=== PATIENT | female | born 1955 | race Caucasian/White ===

== ENCOUNTER → 2020-08-26 11:06 | Outpatient (CLI) | payer BC, SELFPAY ==
[2020-08-26 11:55] VITALS: PULSE 73; PULSE 77
== END ==
PROVIDERS: PCP Internal Medicine Cardiovascular Disease; Visit Provider Nurse Practitioner
DX: J96.91 Respiratory failure, unspecified with hypoxia (principal)
CPT/HCPCS: 94060; 94640

== ENCOUNTER → 2021-05-01 07:03 | Outpatient (CLI) | payer BC, SELFPAY ==
[2021-05-01 07:43] LABS: Adenovirus,PCR Not Detected (NotDetected); Bordetella Pertussis Not Detected (NotDetected); Chlamydophila Pneumoniae, PCR Not Detected (NotDetected); Coronavirus 19, PCR Not Detected (NotDetected); Coronavirus 229E Not Detected (NotDetected); Coronavirus NL63 Not Detected (NotDetected); Coronavirus OC43 Not Detected (NotDetected); Coronovirus HKU1,PCR Not Detected (NotDetected); Human Metapneumovirus Not Detected (NotDetected); Influenza A, PCR Not Detected (NotDetected); Influenza AH1, 2009 Not Detected (NotDetected); Influenza AH1, PCR Not Detected (NotDetected); Influenza AH3,PCR Not Detected (NotDetected); Influenza B, PCR Not Detected (NotDetected); Mycoplasma Pneumoniae, PCR Not Detected (NotDetected); Parainfluenza 1, PCR Not Detected (NotDetected); Parainfluenza 2, PCR Not Detected (NotDetected); Parainfluenza 3, PCR Not Detected (NotDetected); Parainfluenza 4, PCR Not Detected (NotDetected); Respiratory Syncytial Virus Not Detected (NotDetected); Rhinovirus/Enterovirus Not Detected (NotDetected)
[2021-05-01 07:46] LABS: Basophils # 0.1 K/mm3 (0-0.2); Basophils % 1.2 % (0.1-2.0); Eosinophils # 0.3 K/mm3 (0.0-0.4); Eosinophils % 3.9 % (0.1-12.0); Hematocrit 39.8 % (37.0-47.0); Hemoglobin 13.4 g/dL (12.2-16.2); Lymphocytes # 2.3 K/mm3 (0.7-4.5); Lymphocytes % 31.7 % (10-50); Mean Corpuscular HGB Conc 33.7 g/dL (31.8-35.4); Mean Corpuscular Hemoglobin 27.5 pg (27.0-31.2); Mean Corpuscular Volume 81.6 fl (81-99); Monocytes # 0.6 K/mm3 (0.1-1.0); Monocytes % 8.4 % (1.7-9.3); Neutrophils # 3.9 K/mm3 (1.8-7.8); Neutrophils % 54.8 % (37.0-80.0); Platelet Count 236 K/mm3 (142-424); Red Blood Count 4.88 M/mm3 (4.20-5.40); White Blood Count 7.1 K/mm3 (4.8-10.8)
== END ==
PROVIDERS: PCP Family Medicine; Visit Provider Nurse Practitioner
DX: Z11.52 Encounter for screening for COVID-19 (principal); J06.9 Acute upper respiratory infection, unspecified
CPT/HCPCS: 36415; 85025; 87581; 87633; 87798

== ENCOUNTER → 2022-04-21 06:26 | Outpatient (CLI) | payer OTHER, SELFPAY ==
[2022-04-21 18:19] LABS: Adenovirus,PCR Not Detected (NotDetected); Bordetella Pertussis Not Detected (NotDetected); Chlamydophila Pneumoniae, PCR Not Detected (NotDetected); Coronavirus 19, PCR Not Detected (NotDetected); Coronavirus 229E Not Detected (NotDetected); Coronavirus NL63 Not Detected (NotDetected); Coronavirus OC43 Not Detected (NotDetected); Coronovirus HKU1,PCR Not Detected (NotDetected); Human Metapneumovirus Not Detected (NotDetected); Influenza A, PCR Not Detected (NotDetected); Influenza AH1, 2009 Not Detected (NotDetected); Influenza AH1, PCR Not Detected (NotDetected); Influenza AH3,PCR Not Detected (NotDetected); Influenza B, PCR Not Detected (NotDetected); Mycoplasma Pneumoniae, PCR Not Detected (NotDetected); Parainfluenza 1, PCR Not Detected (NotDetected); Parainfluenza 2, PCR Not Detected (NotDetected); Parainfluenza 3, PCR Not Detected (NotDetected); Parainfluenza 4, PCR Not Detected (NotDetected); Respiratory Syncytial Virus Not Detected (NotDetected); Rhinovirus/Enterovirus Not Detected (NotDetected)
== END ==
PROVIDERS: PCP Nurse Practitioner; Visit Provider Nurse Practitioner
DX: Z20.822 Contact with and (suspected) exposure to COVID-19 (principal)
CPT/HCPCS: 87581; 87632; 87798; C9803; U0003; U0005

== ENCOUNTER → 2023-03-06 23:12 | Outpatient (CLI) | payer BC, SELFPAY ==
[2023-03-06 19:47] LABS: Basophils # 0.1 K/mm3 (0-0.2); Basophils % 0.5 % (0.1-2.0); Eosinophils # 0.3 K/mm3 (0.0-0.4); Eosinophils % 3.2 % (0.1-12.0); Hematocrit 44.3 % (37.0-47.0); Lymphocytes # 3.4 K/mm3 (0.7-4.5); Lymphocytes % 35.5 % (10-50); Mean Corpuscular HGB Conc 31.7 g/dL (31.8-35.4); Mean Corpuscular Hemoglobin 27.9 pg (27.0-31.2); Mean Platelet Volume 9.4 fl (7.4-10.4); Monocytes # 0.7 K/mm3 (0.1-1.0); Monocytes % 6.9 % (1.7-9.3); Neutrophils # 5.1 K/mm3 (1.8-7.8); Neutrophils % 53.8 % (37.0-80.0); Platelet Count 335 K/mm3 (142-424); Red Blood Count 5.04 M/mm3 (4.20-5.40); Red Cell Distribution Width 13.8 % (11.5-17.5); White Blood Count 9.5 K/mm3 (4.8-10.8)
== END ==
PROVIDERS: PCP Nurse Practitioner; Visit Provider Nurse Practitioner
DX: J06.9 Acute upper respiratory infection, unspecified (principal)
CPT/HCPCS: 85025; 87635; C9803; U0003; U0005

== ENCOUNTER → 2023-04-06 23:27 | Outpatient (CLI) | payer BC, SELFPAY ==
[2023-04-06 18:44] LABS: Adenovirus,PCR Not Detected (NotDetected); Bordetella Pertussis Not Detected (NotDetected); Chlamydophila Pneumoniae, PCR Not Detected (NotDetected); Coronavirus 19, PCR Not Detected (NotDetected); Coronavirus 229E Not Detected (NotDetected); Coronavirus NL63 Not Detected (NotDetected); Coronavirus OC43 Not Detected (NotDetected); Coronovirus HKU1,PCR Not Detected (NotDetected); Human Metapneumovirus Not Detected (NotDetected); Influenza A, PCR Not Detected (NotDetected); Influenza AH1, 2009 Not Detected (NotDetected); Influenza AH1, PCR Not Detected (NotDetected); Influenza AH3,PCR Not Detected (NotDetected); Influenza B, PCR Not Detected (NotDetected); Mycoplasma Pneumoniae, PCR Not Detected (NotDetected); Parainfluenza 1, PCR Not Detected (NotDetected); Parainfluenza 2, PCR Not Detected (NotDetected); Parainfluenza 3, PCR Not Detected (NotDetected); Parainfluenza 4, PCR Not Detected (NotDetected); Respiratory Syncytial Virus Not Detected (NotDetected)
[2023-04-06 18:52] LABS: Basophils % 0.3 % (0.1-2.0); Eosinophils # 0.3 K/mm3 (0.0-0.4); Eosinophils % 3.6 % (0.1-12.0); Hematocrit 43.2 % (37.0-47.0); Hemoglobin 13.5 g/dL (12.2-16.2); Lymphocytes # 1.7 K/mm3 (0.7-4.5); Mean Corpuscular HGB Conc 31.4 g/dL (31.8-35.4); Mean Corpuscular Hemoglobin 27.6 pg (27.0-31.2); Mean Corpuscular Volume 88.2 fl (81-99); Mean Platelet Volume 8.6 fl (7.4-10.4); Monocytes # 0.6 K/mm3 (0.1-1.0); Monocytes % 6.1 % (1.7-9.3); Neutrophils # 6.7 K/mm3 (1.8-7.8); Platelet Count 303 K/mm3 (142-424); Red Cell Distribution Width 13.8 % (11.5-17.5); White Blood Count 9.3 K/mm3 (4.8-10.8)
[2023-04-06 21:29] LABS: Rhinovirus/Enterovirus Detected (NotDetected)
== END ==
PROVIDERS: PCP Nurse Practitioner; Visit Provider Nurse Practitioner
DX: J06.9 Acute upper respiratory infection, unspecified (principal); B34.1 Enterovirus infection, unspecified
CPT/HCPCS: 85025; 87581; 87632; 87798

== ENCOUNTER → 2023-08-31 09:16 | Outpatient (CLI) | payer BC, SELFPAY ==
[2023-08-31 18:35] LABS: Adenovirus,PCR Not Detected (NotDetected); Coronavirus 19, PCR Not Detected (NotDetected); Coronavirus 229E Not Detected (NotDetected); Coronavirus NL63 Not Detected (NotDetected); Coronavirus OC43 Not Detected (NotDetected); Coronovirus HKU1,PCR Not Detected (NotDetected); Human Metapneumovirus Not Detected (NotDetected); Influenza A, PCR Not Detected (NotDetected); Influenza AH1, 2009 Not Detected (NotDetected); Influenza AH1, PCR Not Detected (NotDetected); Influenza AH3,PCR Not Detected (NotDetected); Influenza B, PCR Not Detected (NotDetected); Parainfluenza 1, PCR Not Detected (NotDetected); Parainfluenza 2, PCR Not Detected (NotDetected); Parainfluenza 3, PCR Not Detected (NotDetected); Parainfluenza 4, PCR Not Detected (NotDetected); Respiratory Syncytial Virus Not Detected (NotDetected); Rhinovirus/Enterovirus Not Detected (NotDetected)
[2023-08-31 18:42] LABS: Basophils % 0.3 % (0.1-2.0); Eosinophils # 0.5 K/mm3 (0.0-0.4); Eosinophils % 4.1 % (0.1-12.0); Hemoglobin 13.3 g/dL (12.2-16.2); Lymphocytes # 2.1 K/mm3 (0.7-4.5); Lymphocytes % 17.1 % (10-50); Mean Corpuscular HGB Conc 32.5 g/dL (31.8-35.4); Mean Corpuscular Hemoglobin 28.6 pg (27.0-31.2); Mean Corpuscular Volume 87.9 fl (81-99); Mean Platelet Volume 9.5 fl (7.4-10.4); Monocytes # 0.7 K/mm3 (0.1-1.0); Neutrophils # 8.6 K/mm3 (1.8-7.8); Neutrophils % 72.4 % (37.0-80.0); Platelet Count 305 K/mm3 (142-424); Red Blood Count 4.67 M/mm3 (4.20-5.40); Red Cell Distribution Width 13.9 % (11.5-17.5); White Blood Count 11.9 K/mm3 (4.8-10.8)
== END ==
PROVIDERS: PCP Nurse Practitioner; Visit Provider Nurse Practitioner
DX: J06.9 Acute upper respiratory infection, unspecified (principal); J02.9 Acute pharyngitis, unspecified; R09.81 Nasal congestion; R51.9 Headache, unspecified
CPT/HCPCS: 85025; 87581; 87632; 87635; 87798

== ENCOUNTER 2023-11-28 21:09 | Outpatient (CLI) | payer BC, SELFPAY ==
[2023-11-28 18:47] LABS: Adenovirus,PCR Not Detected (NotDetected); Coronavirus 19, PCR Not Detected (NotDetected); Coronavirus 229E Not Detected (NotDetected); Coronavirus NL63 Not Detected (NotDetected); Coronavirus OC43 Not Detected (NotDetected); Coronovirus HKU1,PCR Not Detected (NotDetected); Human Metapneumovirus Not Detected (NotDetected); Influenza A, PCR Not Detected (NotDetected); Influenza AH1, 2009 Not Detected (NotDetected); Influenza AH1, PCR Not Detected (NotDetected); Influenza AH3,PCR Not Detected (NotDetected); Influenza B, PCR Not Detected (NotDetected); Parainfluenza 1, PCR Not Detected (NotDetected); Parainfluenza 2, PCR Not Detected (NotDetected); Parainfluenza 3, PCR Not Detected (NotDetected); Parainfluenza 4, PCR Not Detected (NotDetected); Respiratory Syncytial Virus Not Detected (NotDetected); Rhinovirus/Enterovirus Not Detected (NotDetected)
[2023-11-28 19:20] LABS: Basophils # 0.2 K/mm3 (0-0.2); Basophils % 2.7 % (0.1-2.0); Eosinophils # 0.3 K/mm3 (0.0-0.4); Eosinophils % 3.2 % (0.1-12.0); Hemoglobin 15.3 g/dL (12.2-16.2); Lymphocytes # 2.3 K/mm3 (0.7-4.5); Lymphocytes % 28.3 % (10-50); Mean Corpuscular HGB Conc 31.8 g/dL (31.8-35.4); Mean Corpuscular Hemoglobin 29.6 pg (27.0-31.2); Mean Corpuscular Volume 93.2 fl (81-99); Monocytes # 0.4 K/mm3 (0.1-1.0); Monocytes % 5.6 % (1.7-9.3); Neutrophils # 4.8 K/mm3 (1.8-7.8); Neutrophils % 60.2 % (37.0-80.0); Platelet Count 300 K/mm3 (142-424); Red Blood Count 5.15 M/mm3 (4.20-5.40); Red Cell Distribution Width 13.9 % (11.5-17.5)
[2023-11-28 19:35] LABS: Chloride 106 mmol/L (98-107)
[2023-11-28 19:36] LABS: Potassium 4.2 mmoL/L (3.5-5.1); Sodium 138 mmol/L (136-145)
[2023-11-28 19:38] LABS: Alanine Aminotransferase 40 U/L (12-78); Alkaline Phosphatase 133 U/L (38-126); Anion Gap 15.2 mEq/L (5-15); Aspartate Amino Transferase 47 U/L (14-36); Bilirubin,Total 0.7 mg/dl (0.2-1.3); Blood Urea Nitrogen 17 mg/dl (7-17); Carbon Dioxide 21 mmol/L (22.0-30.0); Estimated Glomerular Filt Rate 50 ml/min (>60); GFR (African American) 60 ML/MIN (>60)
[2023-11-28 19:39] LABS: Albumin Level 4.2 g/dl (3.5-5.0); Albumin/Globulin Ratio 1.5 (1.1-1.8); Calcium 10.1 mg/dl (8.4-10.2); Globulin 2.8 g/dL (1.3-3.2); Glucose 128 mg/dl (74-100)
[2023-11-28 20:08] LABS: Thyroid Stimulating Hormone 1.17 uIU/mL (0.465-4.68)
[2023-11-28 21:06] LABS: Creatinine,Urine Random 30 mg/dL (Not Estab.)
== END 2023-11-28 23:59 ==
LOC: LAB.DROPOF 21:09
PROVIDERS: PCP Nurse Practitioner; Visit Provider Nurse Practitioner
DX: R53.83 Other fatigue (principal); J06.9 Acute upper respiratory infection, unspecified; R30.0 Dysuria; R80.9 Proteinuria, unspecified; R11.2 Nausea with vomiting, unspecified; R19.7 Diarrhea, unspecified; Z79.899 Other long term (current) drug therapy
CPT/HCPCS: 80053; 82043; 82570; 84443; 85025; 87086; 87632; 87635

== ENCOUNTER 2023-12-27 18:00 | Outpatient (CLI) | payer BC, SELFPAY ==
[2023-12-27 18:08] LABS: Adenovirus,PCR Not Detected (NotDetected); Coronavirus 19, PCR Not Detected (NotDetected); Coronavirus 229E Not Detected (NotDetected); Coronavirus NL63 Not Detected (NotDetected); Coronavirus OC43 Not Detected (NotDetected); Coronovirus HKU1,PCR Not Detected (NotDetected); Human Metapneumovirus Not Detected (NotDetected); Influenza A, PCR Not Detected (NotDetected); Influenza AH1, 2009 Not Detected (NotDetected); Influenza AH1, PCR Not Detected (NotDetected); Influenza AH3,PCR Not Detected (NotDetected); Influenza B, PCR Not Detected (NotDetected); Parainfluenza 1, PCR Not Detected (NotDetected); Parainfluenza 2, PCR Not Detected (NotDetected); Parainfluenza 3, PCR Not Detected (NotDetected); Parainfluenza 4, PCR Not Detected (NotDetected); Respiratory Syncytial Virus Not Detected (NotDetected); Rhinovirus/Enterovirus Not Detected (NotDetected)
[2023-12-27 18:29] LABS: Basophils # 0.1 K/mm3 (0-0.2); Basophils % 1.5 % (0.1-2.0); Eosinophils # 0.4 K/mm3 (0.0-0.4); Hematocrit 44.8 % (37.0-47.0); Hemoglobin 14.1 g/dL (12.2-16.2); Lymphocytes % 33.9 % (10-50); Mean Corpuscular HGB Conc 31.4 g/dL (31.8-35.4); Mean Corpuscular Hemoglobin 29.4 pg (27.0-31.2); Mean Corpuscular Volume 93.6 fl (81-99); Mean Platelet Volume 8.1 fl (7.4-10.4); Monocytes # 0.6 K/mm3 (0.1-1.0); Monocytes % 7.1 % (1.7-9.3); Neutrophils # 4.7 K/mm3 (1.8-7.8); Neutrophils % 53.5 % (37.0-80.0); Platelet Count 344 K/mm3 (142-424); Red Blood Count 4.78 M/mm3 (4.20-5.40); Red Cell Distribution Width 13.9 % (11.5-17.5); White Blood Count 8.8 K/mm3 (4.8-10.8)
== END 2023-12-27 23:59 | disposition home or self-care (01) ==
LOC: LAB.DROPOF 12-28 10:26
PROVIDERS: PCP Nurse Practitioner; Visit Provider Nurse Practitioner
DX: R07.0 Pain in throat (principal); R09.81 Nasal congestion; R50.9 Fever, unspecified; R53.83 Other fatigue
CPT/HCPCS: 85025; 87632; 87635

== ENCOUNTER 2025-05-15 11:30 | Outpatient (CLI) | payer MEDICARE, SELFPAY ==
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
--- OUTSIDE RECORDS SUMMARY | 2025-04-18 09:00 | XMS_ITS | Encounter Summary ---
Author Organization [place] [address] Care Team Providers Care Iron Installer Name Role Phone Aravind Gomez MD Primary Care Provider [phone] Carie Berry MD Unavailable [phone] Lawrence Bueno Clerical Staff Unavailable [phone] Reason for Visit * Reason Comments Labs Only Encounter Details Date Type Department Care Team (Latest Contact Info) Description 04/18/2025 9:00 AM EDT Clinical Support MARGUERITE [place] [address] [place] [address] Slim Fletcher MA Poorly controlled type 2 diabetes mellitus (HCC); Low vitamin B12 level; Stage 3a chronic kidney disease (HCC); Statin intolerance; Hyperlipidemia associated with type 2 diabetes mellitus (HCC) Social History Tobacco Use Types Packs/Day Years [...] Date Recorded PHQ-2 Total Score 0 06/14/2023 [facility] [place] of Occupat ional Health - Occupational Stress [...] place to sleep or slept in a fci (including now)? No 06/12/2023 Comments No Sex and Gender Information Value Date Recorded Sex Assigned at Not on file Legal Sex Female 2:20 PM EDT Gender Identity Not on file Sexual Orientation Not on file documented as of this encounter Functional Status * Is the [...] of Assessment Author No 11/02/2020 3:30 PM KIN Yulisa Chung CCMA * Does this person have difficulty dressing or bathing? Answer Date of Assessment Author No 11/02/2020 3:30 PM EST Yulisa Chung CCMA * Because of a physical, mental [...] documented in this encounter Progress Notes * Slim Fletcher MA - 04/18/2025 9:00 AM EDT Venipuncture in the right antecubital vein with 21 gauge needle, length 1 1/2 inch. documented in this encounter Plan of Treatment Upcoming Encounters Date Type Department Care Team (Late st Contact Info) Description 05/29/2025 4:00 PM EDT Appointment EDG [address] [place] [address] Lauren Ojeda [facility] 06/12/2025 1:30 PM EDT Appointment [facility] [address] [place] [address] 09/25/2025 1:45 PM EST Office Visit [facility] Nephrology [place] [address] [place] [address] Carie Berry MD [address] [place] [address] 10/07/2025 10:30 AM EST Office Visit [facility] Pul[facility] [address] [place] [address] Ronen Cage MD [address] [place] [address] 04/13/2026 1:10 PM EDT Office Visit [facility] [place] [address] [facility] [address] [place] [address] Carmen Kinney MD 40 [facility] [address] [place] [address] documented as of this encounter Goals [...] Chung CCMA documented as of this encounter Procedures Procedure Name Priority Date/Time Associated Diagnosis Comments LIPID PANEL REFLEX Routine 04/18/2025 9: 27 AM EDT Statin intolerance Hyperlipidemia associated with type 2 diabetes mellitus (HCC) VITAMIN B12/ FOLIC ACID Routine 04/18/2025 9:27 AM EDT Low vitamin B12 level CBC WITH DIFF Routine 04/18/2025 9:27 AM EDT Low vitamin B12 level HEMOGLOBIN A1C Routine 04/18/2025 9:27 AM EDT Poorly controlled type 2 diabetes mellitus (HCC) COMPREHENSIVE METABOLIC PANEL Routine 04/18/2025 9:27 AM EDT Stage 3a chronic kidney disease (HCC) documented in this encounter Results * LIPID PANEL REFLEX (04/18/2025 9:27 AM EDT) Cholesterol 157 <200 mg/dL 04/18/2025 3:36 PM EDT [facility] Comment: < 200 Desirable 200 - 239 Borderline High >= 240 High Triglyceride 146 <150 mg/dL 04/18/2025 3:36 PM EDT [facility] Comment: < 150 Normal 150 - 199 Borderline High 200 - 499 High >= 500 Very High HDL 42 >=40 mg/dL 04/18/2025 3:36 PM EDT [facility] Comment: > 60 Optimal 40 - 60 Acceptable < 40 Low LDL Calculated 89 <100 mg/dL 04/18/2025 3:36 PM EDT [place] Comment: < 100 Optimal 100 - 129 Near or above optimal 130 - 159 Borderline High 160 - 189 High >= 190 Very High The National Institutes of Health (NIH) equation is used for all lipid panels that report calculated LDL (LDL-C). Non-HDL-C Calculated 115 <=129 mg/dL 04/18/2025 3:36 PM EDT [facility] Comment: <130 Desirable 130-159 Above Desirable 160-189 Borderline High 190-219 High >= 220 Very High Fasting Specimen? Yes None 025 3:36 PM EDT [facility] Blood VENOUS BLOOD / Unknown Venipuncture / Unknown 04/18/2025 9:27 AM EDT 04/18/2025 9:27 AM EDT us Heraclio Hoang MD CHEMISTRY ORDERABLES Final Resul t [facility] [address] [facility] , [place] [address] * (ABNORMAL) COMPREHENSIVE METABOLIC PANEL (04/18/2025 9:27 AM EDT) Sodium 137 136 - 145 mmol/L 04/18/2025 3:36 PM EDT [facility] Potassium 4.7 3.5 - 5.0 mmol/L 04/18/2025 3:36 PM EDT [facility] Chloride 102 98 - 107 mmol/L 04/18/2025 3:36 PM EDT [facility] Total CO2 23 22 - 29 mmol/L 04/18/2025 3:36 PM EDT [facility] Anion Gap 12 7 - 16 mmol/L 04/18/2025 3:36 PM EDT [facility] Calcium 10.3 8.8 - 10.4 mg/dL 04/18/2025 3:36 PM EDT [facility] Glucose Lvl 143(H) 70 - 99 mg/dL 04/18/2025 3:36 PM EDT [facility] BUN 25(H) 8 - 23 mg/dL 04/18/2025 3:36 PM EDT [facility] Creatinine 1.10 0.51 - 1.30 mg/dL 04/18/2025 3:36 PM EDT [facility] Albumin 3.8 3.2 - 4.6 gm/dL 04/18/2025 3:36 PM EDT [facility] Total Protein 6.8 6.4 - 8.3 gm/dL 04/18/2025 3:36 PM EDT [facility] Bili Total 0.4 0.2 - 1.3 mg/dL 04/18/2025 3:36 PM EDT [facility] ALT 13 <=41 U/L 04/18/2025 3:36 PM EDT [facility] AST 15 <=40 U/L 04/18/2025 3:36 PM EDT [facility] Alk Phos 83 36 - 123 U/L 04/18/2025 3:36 PM EDT [facility] eGFR (CKD-EPIcr 2020) 55(L) >=60 mL/min/1.7 3 m2 04/18/2025 3:36 PM EDT [facility] Comment:Estimated GFR was ca lculated using the CKD-EPIcr (2020) equation refit without race. The equation is recommended by the National Kidney Foundation - [place] Society of Nephrology Task Force. Blood VENOUS BLOOD / Unknown Venipuncture / Unknown 04/18/2025 9:27 AM EDT 04/18/2025 9:27 AM EDT Aravind Gomez MD CHEMISTRY ORDERABLES Final Result [facility] [address] [facility], [place] [address] * CBC WITH DIFF (04/18/2025 9:27 AM EDT) WBC 6.4 3.7 - 10.3 x10(3)/mcL 04/18/2025 3:39 PM EDT [facility] RBC 4.31 3.90 - 5.20 x10(6)/mcL 04/18/2025 3:39 PM EDT [facility] Hgb 12.1 11.2 - 15.7 g/dL 04/18/2025 3:39 PM EDT [facility] Hct 39.2 34.0 - 45.0 % 04/18/2025 3:39 PM EDT [facility] MCV 91.0 80.0 - 100.0 fL 04/18/2025 3:39 PM EDT [facility] MCH 28.1 26.0 - 34.0 pg 04/18/2025 3:39 PM EDT [facility] MCHC 30.9 30.7 - 35.5 g/dL 04/18/2025 3:39 PM EDT [facility] RDW 14.8 <=14.9 % 04/18/2025 3:39 PM EDT [facility] Platelet 291 155 - 369 x10(3)/mcL 04/18/2025 3:39 PM EDT [facility] MPV 10.7 8.8 - 12.5 fL 04/18/2025 3:39 PM EDT [facility] Neut Percent 42.2 % 04/18/2025 3:39 PM EDT [facility] Comment:Neutrophils equals s egs plus bands Imm Gran% 0.9 % 04/18/2025 3:39 PM EDT [facility] Comment:Automated count of m etamyelocytes, myelocytes and promyelocytes. Lymph Percent 41.5 % 04/18/2025 3:39 PM EDT [facility] [place] Percent 10.0 % 04/18/2025 3:39 PM EDT [facility] Eos Percent 4.5 % 04/18/2025 3:39 PM EDT [facility] Baso Percent 0.9 % 04/18/2025 3:39 PM EDT [facility] Neut # 2.7 1.6 - 6.1 x10(3)/mcL 04/18/2025 3:39 PM EDT [facility] Comment:Neutrophils equals s egs plus bands IMMGRAN# 0.1 0.0 - 0.1 x10(3)/mcL 04/18/2025 3:39 PM EDT [facility] Comment:Automated count of m etamyelocytes, myelocytes and promyelocytes. An absolute IG <0.1 is reported as 0.0. Lymph # 2.7 1.2 - 3.9 x10(3)/mcL 04/18/2025 3:39 PM EDT [facility] [place]utter # 0.6 0.3 - 0.9 x10(3)/mcL 04/18/2025 3:39 PM EDT [facility] Eos# 0.3 0.0 - 0.5 x10(3)/mcL 04/18/2025 3:39 PM EDT [facility] Baso # 0.1 0.0 - 0.1 x10(3)/mcL 04/18/2025 3:39 PM EDT [facility] Blood VENOUS BLOOD / Unknown Venipuncture / Unknown 04/18/2025 9:27 AM EDT 04/18/2025 9:27 AM EDT Aravind Gomez MD HEMATOLOGY ORDERABLES Final Result [facility] [address] [facility] , [place] [address] * VITAMIN B12/ FOLIC ACID (04/18/2025 9:27 AM EDT) [facility] Vitamin B12 320 232 - 1,245 pg/mL 04/18/2025 4:54 PM EDT [facility] Folate 10.30 >=4.80 ng/mL 04/18/2025 4:54 PM EDT [facility] Blood VENOUS BLOOD / Unknown Venipuncture / Unknown 04/18/2025 9:27 AM EDT 04/18/2025 9:27 AM EDT Narrative [facility] - 04/18/2025 4:54 PM EDT Ingestion of zuleyka doses of biotin (>5 mg/day) taken within 8 hours of drawing blood sample can interfere with this immunoassay test. Aravind Gomez MD CHEMISTRY ORDERABLES Final Result Performing Organization Address [facility] de Phone Number [facility] [address] , [address] [place], [place] [id number] * (ABNORMAL) HEMOGLOBIN A1C (04/18/2025 9:27 AM EDT) [facility] Hgb A1C 7.1(H) 4.2 - 5.6 % 04/18/2025 3:58 PM EDT [facility] Est. Avg Glucose 157 mg/dL 04/18/2025 3:58 PM EDT [facility] Blood VENOUS BLOOD / Unknown Venipuncture / Unknown 04/18/2025 9:27 AM EDT 04/18/2025 9:27 AM EDT Narrative [facility] - 04/18/2025 3:58 PM EDT REFERENCE RANGE: Normal: 4.0-5.6% Pre-diabetes: 5.7-6.4% Provisional diagnosis of diabetes: >6.4% Hgb F>10% and anything which shortens red cell survival, such as hemolytic anemia, or unstable hemoglobin variants such as HbSS, HbSC, or HbCC, will lower the HbA1c value associated with a given level of glycemic control. Aravind Gomez MD CHEMISTRY ORDERABLES Final Result Performing Organization Address [facility] de Phone Number [facility] [address] , [place] [address] documented in this encounter Visit Diagnoses Diagnosis Poorly controlled type 2 diabetes mellitus (HCC) Type II or unspecified type diabetes mellitus without mention of complication, not stated as uncontrolled Low vitamin B12 level Other B-complex deficiencies Stage 3a chronic kidney disease (HCC) Statin intolerance Other drug allergy Hyperlipidemia associated with type 2 diabetes mellitus (HCC) documented in this encounter Additional Health Concerns Assessment Noted Time A fall risk assessment has been complete d for the patient 10/19/2022 2:50 PM EST documented as of this encounter Care Teams Iron Installer Relationship Specialty Start Date End Date Aravind Gomez MD [address] [facility] [place] [address] PCP - General 02/12/10 Carie Berry MD [address] [facility] [address] [place] [address] Consulting Physician Internal Medicine-Nephrology 11/29/18 Lawrence Bueno, Clerical Staff Financial Counselor 02/19/25 documented as of this encounter
--- OUTSIDE RECORDS SUMMARY | 2025-05-19 09:30 | XMS_ITS | Encounter Summary ---
Author Organization [place] [address] Care Team Providers Care Automobile Service Writer Name Role Phone Aravind Gomez MD Primary Care Provider [phone] Edmund Berry MD Unavailable [phone] Lawrence Bueno Clerical Staff Unavailable [phone] Encounter Details Date Type Department Care Team (Latest Contact Info) Description 04/21/2025 Results Follow-Up SEP [facility] [place] [address] Aravind Gomez MD [address] [facility] [place] [address] HEMOGLOBIN A1C, VITAMIN B12/ FOLIC ACID, CBC WITH DIFF, COMPREHENSIVE METABOLIC PANEL Social History Tobacco Use Types Packs/Day Years [...] Recorded PHQ-2 Total Score 0 06/14/2023 [facility] [place] of Occupat ional Health - Occupational Stress [...] place to sleep or slept in a long term (including now)? No 06/12/2023 Comments No Sex [...] Assessment Author No 11/02/2020 3:30 PM KIN [place] Yulisa RIN Aflred * Does this person have serious difficulty walking or climbing stairs? Answer Date of Assessment Author No 11/02/2020 3:30 PM KIN [place] Yulisa RIN Alfred * Does this person have difficulty dressing or bathing? Answer Date of Assessment Author No 11/02/2020 3:30 PM KIN [place] Yulisa RIN Alfred * Because of a physical, mental or emotional condition, does this person have difficulty doing errands alone such as visiting a doctor's office or shopping? Answer Date of Assessment Author No 11/02/2020 3:30 PM KIN [place] Yulisa RIN Alfred documented as of this encounter Mental Status * Because of a physical, mental or emotional condition, does this person have serious difficulty concentrating, remembering or making decisions? Answer Entry Date Author No 11/02/2020 3:30 PM KIN [place] Yulisa RIN Alfred documented in this encounter Plan of Treatment Upcoming Encounters Date Type Department Care Team (Late st Contact Info) Description 05/29/2025 4:00 PM EDT Appointment [facility] MED [address] [place] [id number] Lauren Ojeda, [facility] 06/12/2025 1:30 PM EDT Appointment [facility] [address] [place] [address]. [address] [place] [address] 09/25/2025 1:45 PM EST Office Visit [facility] Nephrology [place] [address] [facility] [address] [facility] [place] [address] Edmund Berry MD [address] [facility] [place] [address] 10/07/2025 10:30 AM EST Office Visit [facility] Pulmonology [facility] [address] [facility] [address] [place] [address] Ronen Cage MD [address] [facility] [place] [id number] 04/13/2026 1:10 PM EDT Office Visit [facility] [place] [address] [facility] [address] [place] [address] Carmen Kinney MD 40 [facility] [address] [place] [address] documented as of this encounter Goals [...] documented as of this encounter Visit Diagnoses Not on filedocumented in this encounter Additional Health Concerns Assessment Noted Time A fall risk assessment has been complete d for the patient 10/19/2022 2:50 PM EST documented as of this encounter Care Teams Automobile Service Writer Relationship Specialty Start Date End Date Aravind Gomez MD [address] [facility] [place] [address] PCP - General 02/12/10 Edmund Berry MD [address] [place] [address] [address] [facility] [address] [place] [address] Consulting Physician Internal Medicine-Nephrology 11/29/18 Lawrence Bueno, Clerical Staff Financial Counselor 02/19/25 documented as of this encounter
--- OUTSIDE RECORDS SUMMARY | 2025-05-19 09:30 | XMS_ITS | Encounter Summary ---
Author Organization [place] [address] Care Team Providers Care Hanger Off Name Role Phone Aravind Gomez MD Primary Care Provider [phone] Carie Berry MD Unavailable [phone] Lawrence Bueno Clerical Staff Unavailable [phone] Reason for Visit * Reason Comments Medication Refill Encounter Details Date Type Department Care Team (Late st Contact Info) Description 04/08/2025 Refill [facility] Pulmonology [facility] [address] [facility] [address] [place] [address] Ronen Cage MD [address] [place] [address] Medication Refill Social History Tobacco Use Types Packs/Day Years [...] Date Recorded PHQ-2 Total Score 0 06/14/2023 [facility] of Occupat ional Health - Occupational Stress [...] place to sleep or slept in a detention (including now)? No 06/12/2023 Comments No Sex [...] Yulisa Rm CCMA documented in this encounter Ordered Prescriptions Prescription Sig Dispense Quantity Refills Last Filled Start Date End Date montelukast (SINGULAIR) 10 mg Oral TabletIndications:M oderate persistent asthma without complication Take 1 Tablet by mouth once daily every evening. 100 Tablet 1 04/09/2025 documented in this encounter Miscellaneous Notes * Telephone Encounter - Doreen Reagan CPhT - 04/09/2025 2:03 PM EDT Montelukast 10 Future Visit: 10/07/25 Last Assessed Visit: 05/28/24 Follow-Up Date: 11/25/24 All protocols passed. Refills approved and sent to requesting pharmacy. Routed to [facility] if an appointment is needed. documented in this encounter Plan of Treatment Upcoming Encounters Date Type Department Care Team (Late st Contact Info) Description 05/29/2025 4:00 [place] [address] Lauren Ojeda RP 06/12/2025 1:30 PM EDT Appointment [facility] [address] [facility] [place] [address] 09/25/2025 1:45 PM EST Office Visit [facility] Nephrology [place] [address], [place] [phone] Carie Berry MD [address] [place] [address] 10/07/2025 10:30 AM EST Office Visit [facility] Pulmonology [facility] [address] [place] [address] Ronen Cage MD [address] [place] [address] 04/13/2026 1:10 PM EDT Office Visit [facility] [place] 40 [facility] 101 [place] [address] Carmen Kinney MD 40 [facility] [address] [place] [address] documented as of this encounter [...] as of this encounter Visit Diagnoses Diagnosis Moderate persistent asthma without complication Unspecified asthma documented in this encounter Discontinued Medications Medication Sig Discontinue Reason Start Date End Da te montelukast (SINGULAIR) 10 mg Oral TabletIndications:Moderat e persistent asthma without complication Take 1 Tablet by mouth once daily every evening. 03/31/2025 04/09/2025 documented as of this encounter Additional Health Concerns Assessment Noted Time A fall risk assessment has been complete d for the patient 10/19/2022 2:50 PM EST documented as of this encounter Care Teams Hanger Off Relationship Specialty Start Date End Date Aravind Gomez MD [address] [place] [address] PCP - General 02/12/10 Carie Berry MD [address] [address] Consulting Physician Internal Medicine-Nephrology 11/29/18 Lawrence Bueno, Clerical Staff Financial Counselor 02/19/25 documented as of this encounter
--- OUTSIDE RECORDS SUMMARY | 2025-05-19 09:30 | XMS_ITS | Encounter Summary ---
Author Organization [place] [address] Care Team Providers Care Cost Accountant Name Role Phone Aravind Gomez MD Primary Care Provider [phone] Carie Berry MD Unavailable [phone] Lawrence Bueno Clerical Staff Unavailable + [phone] Reason for Visit * Reason Comments Financial Counseling Encounter Details Date Type Department Care Team (Late st Contact Info) Description 04/11/2025 Patient Outreach [facility] [address] [place] [address] Lawrence Bueno, Clerical Staff Financial Counseling Social History Tobacco Use Types Packs/Day Years [...] Date Recorded PHQ-2 Total Score 0 06/14/2023 [facility] of Occupat ional Health - Occupational Stress [...] place to sleep or slept in a prison (including now)? No 06/12/2023 Comments No Sex [...] Author No 11/02/2020 3:30 PM Yulisa Rm RIN * Does this person have serious difficulty walking or climbing stairs? Answer Date of Assessment Author No 11/02/2020 3:30 PM Yulisa Rm RIN * Does this person have difficulty dressing [...] Author No 11/02/2020 3:30 PM Yulisa Rm RIN documented in this encounter Progress Notes * Lawrence Bueno, Clerical Staff - 04/11/2025 3:22 PM EDT Haylee Coughlin [id number] Claims QUOC #: [id number] Date of service: 03/06/25 Submitted via: Upload Medication: Leqvio Program: [facility] Date sent: 04/11/25 Amount Requested: [id number] Claim status: Submitted documented in this encounter Plan of Treatment Upcoming Encounters Date Type Department Care Team (Late st Contact Info) Description 05/29/2025 4:00 PM EDT Appointment [facility] [address] [place] [address] [address] [place] [address] Lauren Ojeda [facility] 06/12/2025 1:30 PM EDT Appointment [facility] [address] [place] [address] 09/25/2025 1:45 PM EST Office Visit [facility] Nephrology [place] [address] [place] [address] Carie Berry MD [address] [place] [address] 10/07/2025 10:30 AM EST Office Visit [facility] Pulmon[facility] [address] [place] [address] Ronen Cage MD [address] [place] [address] 04/13/2026 1:10 PM EDT Office Visit [facility] . [place] 40 [facility] [address] [place] [address] Carmen Kinney MD 40 [facility] [address] [place] [address] documented as of this encounter [...] documented as of this encounter Care Teams Cost Accountant Relationship Specialty Start Date End Date Aravind Gomez MD [address] [facility] [place] [phone] PCP - General 02/12/10 Carie Berry MD [address] [place] [address] Consulting Physician Internal Medicine-Nephrology 11/29/18 Lawrence Bueno, Clerical Staff Financial Counselor 02/19/25 documented as of this encounter
--- OUTSIDE RECORDS SUMMARY | 2025-05-19 09:30 | XMS_ITS | Clinical Summary ---
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 promyelocytes. An absolute IG <0.1 is reported as 0.0. Lymph # 2.7 1.2 - 3.9 x10(3)/mcL 04/18/2025 3:39 PM EDT [facility], [facility] Martin # 0.6 0.3 - 0.9 x10(3)/mcL 04/18/2025 3:39 PM EDT [facility], [facility] Eos# 0.3 0.0 - 0.5 x10(3)/mcL 04/18/2025 3:39 PM EDT [facility], [facility] Baso # 0.1 0.0 - 0.1 x10(3)/mcL 04/18/2025 3:39 PM EDT [facility], [facility] Blood VENOUS BLOOD / Unknown Venipuncture / Unknown 04/18/2025 9:27 AM EDT 04/18/2025 9:27 AM EDT us Aravind Gomez MD HEMATOLOGY ORDERABLES Final Result [facility] [employer] [facility], [facility] [address] , [place] [address] * (ABNORMAL) HEMOGLOBIN A1C (04/18/2025 9:27 AM EDT) [facility] Hgb A1C 7.1(H) 4.2 - 5.6 % 04/18/2025 3:58 PM EDT [facility] [employer], [facility] Est. Avg Glucose 157 mg/dL 04/18/2025 3:58 PM EDT [facility] [employer], [facility] Blood VENOUS BLOOD / Unknown Venipuncture / Unknown 04/18/2025 9:27 AM EDT 04/18/2025 9:27 AM EDT Narrative [facility], [facility] - 04/18/2025 3:58 PM EDT REFERENCE RANGE: Normal: 4.0-5.6% Pre-diabetes: 5.7-6.4% Provisional diagnosis of diabetes: >6.4% Hgb F>10% and anything which shortens red cell survival, such as hemolytic anemia, or unstable hemoglobin variants such as HbSS, HbSC, or HbCC, will lower the HbA1c value associated with a given level of glycemic control. us Aravind Gomez MD CHEMISTRY ORDERABLES Final Result [facility] [address] [facility], [place] [address] * (ABNORMAL) COMPREHENSIVE METABOLIC PANEL (04/18/2025 9:27 [...] U/L 04/18/2025 3:36 PM EDT [facility], [facility] eGFR (CKD-EPIcr 2020) 55(L) >=60 mL/min/1.7 3 m2 04/18/2025 3:36 PM EDT [facility] Comment:Estimated GFR was ca lculated using the CKD-EPIcr (2020) equation refit without race. The equation is recommended by the National Kidney Foundation - [place] [employer] Nephrology Task Force. Blood VENOUS BLOOD / Unknown Venipuncture / Unknown 04/18/2025 9:27 AM EDT 04/18/2025 9:27 AM EDT us Aravind Gomez MD CHEMISTRY ORDERABLES Final Result [facility] [employer] [facility], [facility] [address] , [place] [address] * XR FOOT RIGHT AP LATERAL AND OBLIQUE STANDING (03/17/2025 9:58 AM EDT) Narrative [facility], [facility] - 03/17/2025 9:58 AM EDT Please see physician's note from office encounter for x-ray imaging result Kelechi Porras APRN IMG DIAGNOSTIC IMAGING ORDERABL ES Final Result * (ABNORMAL) CBC (03/17/2025 9:00 AM EDT) WBC 7.1 3.7 - 10.3 x10(3)/mcL 03/17/2025 5:21 PM EDT [facility] RBC 4.28 3.90 - 5.20 x10(6)/mcL 03/17/2025 5:21 PM EDT [facility] Hgb 11.9 11.2 - 15.7 g/dL 03/17/2025 5:21 PM EDT [facility] Hct 39.5 34.0 - 45.0 % 03/17/2025 5:21 PM EDT [facility] MCV 92.3 80.0 - 100.0 fL 03/17/2025 5:21 PM EDT [facility] MCH 27.8 26.0 - 34.0 pg 03/17/2025 5:21 PM EDT [facility] MCHC 30.1(L) 30.7 - 35.5 g/dL 03/17/2025 5:21 PM EDT [facility] [employer], [facility] RDW 15.1(H) <=14.9 % 03/17/2025 5:21 PM EDT [facility] [employer], [facility] Platelet 306 155 - 369 x10(3)/mcL 03/17/2025 5:21 PM EDT [facility] [employer], [facility] MPV 10.4 8.8 - 12.5 fL 03/17/2025 5:21 PM EDT [facility] [employer], [facility] Blood VENOUS BLOOD / Unknown Venipuncture / Unknown 03/17/2025 9:00 AM EDT 03/17/2025 9:02 AM EDT Carie Berry MD HEMATOLOGY ORDERABLES Fi nal Result Performing Organization Address [facility] de Phone Number [facility] [employer], [address] , [place] [phone] * (ABNORMAL) VITAMIN D 25 HYDROXY (03/17/2025 9:00 AM EDT) [facility] Vit D 25 OH 25.2(L) 30.0 - 150.0 ng/mL 03/17/2025 7:58 PM EDT [facility] [employer], [facility] Comment: Preferred: >= 30 ng/mL Insufficient: 21-29 ng/mL Deficient <= 20 ng/mL Possible Toxicity: >150 ng/mL Samples should not be taken from patients receiving therapy with high biotin doses (i.e. > 5 mg/day) until at least 8 hours following the last biotin administration. Blood VENOUS BLOOD / Unknown Venipuncture / Unknown 03/17/2025 9:00 AM EDT 03/17/2025 9:02 AM EDT us Carie Berry MD CHEMISTRY ORDERABLES Fin al Result Performing Organization Address [facility] Co de Phone Number [facility] [employer], [address] , [place] [address] * (ABNORMAL) URINALYSIS (03/17/2025 9:00 AM EDT) UA Color Yellow 03/17/2025 3:35 PM EDT [facility] UA Appear Clear Clear 03/17/2025 3:35 PM EDT [facility] UA Glucose Negative Negative mg/dL 03/17/2025 3:35 PM EDT [facility] UA Ketones Negative Negative mg/dL 03/17/2025 3:35 PM EDT [facility] UA Blood Negative Negative 03/17/2025 3:35 PM EDT [facility] UA pH 6.0 5.0 - 8.0 pH 03/17/2025 3:35 PM EDT [facility] UA Protein Negative Negative mg/dL 03/17/2025 3:35 PM EDT [facility] UA Urobilinogen Normal <=1 mg/dL 3:35 PM EDT [facility] UA Bili Negative Negative 03/17/2025 3:35 PM EDT [facility] UA Nitrite Negative Negative 03/17/2025 3:35 PM EDT [facility] UA Leuk Est 1+ (25 Joey/mcl)(A) Negative 03/17/2025 3:35 PM EDT [facility] UA Spec Grav 1.022 1.001 - 1.035 no units 03/17/2025 3:35 PM EDT [facility] Comment:Reference range krishna d for random specimens only. UA WBC 5(H) 0 - 4 /HPF 03/17/2025 3:35 PM EDT [facility] UA RBC <1 0 - 3 /HPF 03/17/2025 3:35 PM EDT [facility] UA Squam Epi 4+ /LPF 03/17/2025 3:35 PM EDT [facility] UA Mucus Trace /LPF 03/17/2025 3:35 PM EDT [facility] UA Hyal Cast 1 0 - 2 /LPF 03/17/2025 3:35 PM EDT [facility] Urine STRUCTURE OF URINARY TRACT PROPER / Unknown 03/17/2025 9:00 AM EDT 03/17/2025 9:02 AM EDT Carie Berry MD URINE ORDERABLES Final R esult Performing Organization Address [facility] de Phone Number [facility] [employer] [address] , [place] [address] * PHOSPHORUS LEVEL (03/17/2025 9:00 AM EDT) Pathologist [facility] Phosphorus 3.3 2.5 - 4.5 mg/dL 03/17/2025 6:44 PM EDT [facility] Blood VENOUS BLOOD / Unknown Venipuncture / Unknown 03/17/2025 9:00 AM EDT 03/17/2025 9:02 AM EDT Carie Berry MD CHEMISTRY ORDERABLES Fin al Result Performing Organization Address [place]/[facility] de Phone Number [facility] [employer] [address] , [place] [address] * PARATHYROID HORMONE INTACT (03/17/2025 9:00 AM EDT) [facility] PTH Intact 33.40 15.00 - 65.00 pg/mL 03/17/2025 5:54 PM EDT [facility] [employer] Blood VENOUS BLOOD / Unknown Venipuncture / Unknown 03/17/2025 9:00 AM EDT 03/17/2025 9:02 AM EDT Narrative [facility] - 03/17/2025 5:54 PM EDT Intact PTH Calcium Interpretation ------- 15 - 65 8.6 - 10.2 Normal > 65 > 10.2 Primary Hyperparathyroidism < 20 > 10.2 Non-Parathyroid hypercalcemia < 15 < 8.6 Hypoparathyroidism Consider the above as guidelines only. PTH results should be interpreted in conjunction with the total or ionized calcium level. The finding of a persistently high-normal calcium accompanied by a high-normal PTH (or a low-normal calcium accompanied by a low-normal PTH) warrants further investigation. Although the PTH may itself be within normal limits, it may be inappropriately high (or low) relative to the circulating calcium level. Ingestion of zuleyka doses of biotin (>5 mg/day) taken within 8 hours of drawing blood sample can interfere with this immunoassay test. us Carie Berry MD CHEMISTRY ORDERABLES Fin al Result [facility], [facility] [address] , [address] [place] [phone] * (ABNORMAL) BASIC METABOLIC PANEL (03/17/2025 9:00 AM EDT) Sodium 141 136 - 145 mmol/L 03/17/2025 6:44 PM EDT [facility] Potassium 4.6 3.5 - 5.0 mmol/L 03/17/2025 6:44 PM EDT [facility] Chloride 105 98 - 107 mmol/L 03/17/2025 6:44 PM EDT [facility] Total CO2 25 22 - 29 mmol/L 03/17/2025 6:44 PM EDT [facility] Anion Gap 11 7 - 16 mmol/L 03/17/2025 6:44 PM EDT [facility] Calcium 10.0 8.8 - 10.4 mg/dL 03/17/2025 6:44 PM EDT [facility] Glucose Lvl 124(H) 70 - 99 mg/dL 03/17/2025 6:44 PM EDT [facility] BUN 28(H) 8 - 23 mg/dL 03/17/2025 6:44 PM EDT [facility] Creatinine 1.12 0.51 - 1.30 mg/dL 03/17/2025 6:44 PM EDT [facility] eGFR (CKD-EPIcr 2020) 54(L) >=60 mL/min/1.7 3 m2 03/17/2025 6:44 PM EDT [facility] Comment:Estimated GFR was ca lculated using the CKD-EPIcr (2020) equation refit without race. The equation is recommended by the National Kidney Foundation - [place] [employer] of Nephrology Task Force. Blood VENOUS BLOOD / Unknown Venipuncture / Unknown 03/17/2025 9:00 AM EDT 03/17/2025 9:02 AM EDT Carie Berry MD CHEMISTRY ORDERABLES Fin al Result Performing Organization Address [facility] de Phone Number [facility] [employer] [address] , [place] [phone] * MICROALBUMIN/CREATININE RATIO URINE (01/15/2025 4:04 PM EDT) Urine Microalb 13.3 mg/L 01/15/2025 8:59 PM EDT [facility] [employer], [facility] Urine Creatinine 248.0 mg/dL 01/15/2025 8:59 PM EDT [facility] [employer], [facility] Ur Microalb/Creat 5 0 - 30 mg/g 01/15/2025 8:59 PM EDT [facility] Urine STRUCTURE OF URINARY TRACT PROPER / Unknown 01/15/2025 4:04 PM EDT 01/15/2025 4:04 PM EDT Carie Berry MD URINE ORDERABLES Final R esult Performing Organization Address [facility] de Phone Number [facility] [employer] [address] , [address] [place] [phone] [facility] [address] [place], [place] [phone] * COLONOSCOPY (08/14/2023 8:35 AM EST) Anatomical Region Laterality Modality Endoscopy Narrative 08/14/2023 8:39 AM EST Table formatting from the original result was not included. Findings The mucosa of the colon and terminal ileum was normal. One 3 mm sessile polyp in the transverse colon; no bleeding was identified; performed cold forceps biopsy with complete en bloc removal. There was no evidence of postpolypectomy bleeding. Two 3 mm sessile polyps in the sigmoid colon; no bleeding was identified; performed cold forceps biopsy with complete en bloc removal. There was no evidence of postpolypectomy bleeding. Internal small hemorrhoids; no bleeding was identified Recommendation Await pathology results Follow up with me in clinic in 3 months Suspect rectal bleeding was hemorrhoids Impression Normal. 3 subcentimeter polyps were removed with cold forceps biopsy Small hemorrhoids Indication Rectal bleeding Personal history of colon polyps Family history of colon cancer/polyps Staff Staff Role BERNARDO Marshall CRNA, RN Nurse Chandler Caballero MD Performing Provider Medications See Anesthesia Record. Preprocedure A history and physical has been performed, and patient medication allergies have been reviewed. The patient's tolerance of previous anesthesia has been reviewed. The risks and benefits of the procedure and the sedation options and risks were discussed with the patient. All questions were answered and informed consent obtained. ASA 3 - Patient with severe systemic disease Details of the Procedure The patient underwent monitored anesthesia care, which was administered by an anesthesia professional. The patient's blood pressure, heart rate, level of consciousness, oxygen, respirations, ECG and ETCO2 were monitored throughout the procedure. A digital rectal exam was performed. The scope was introduced through the anus and advanced to the terminal ileum. Retroflexion was performed in the rectum. Bowel prep was adequate. The patient experienced no blood loss. The procedure was not difficult. The patient tolerated the procedure well. There were no apparent adverse events. Patient provided education and educated on specific discharge instructions. Patient educated on medications given during the procedure and new medications for discharge. Patient verbalizes understanding of discharge education. Patient stable and awaiting transport for discharge. Events Procedure Events Event Event Time ENDO SCOPE IN TIME 08/14/2023 8:06 AM ENDO SCOPE OUT TIME 08/14/2023 8:18 AM ENDO SCOPE IN TIME 08/14/2023 8:23 AM ENDO CECUM REACHED 08/14/2023 8:27 AM ENDO SCOPE WITHDRAW BEGIN 08/14/2023 8:27 AM TSG LUME TI REACHED 08/14/2023 8:27 AM ENDO SCOPE OUT TIME 08/14/2023 8:35 AM Specimens ID Type Source Tests Collected by Time 3 : Tissue Large Intestine, Transverse Colon TSG PATHOLOGY ORDER Chandler Caballero MD 08/14/2023 0836 4 : Tissue Large Intestine, Sigmoid Colon TSG PATHOLOGY ORDER Chandler Caballero MD 08/14/202336 us Kymberly Kee MANAGER GAMING ENDOSCOPY PROCEDURE ORDERA BLES Final Result * DIABETES EYE EXAM (10/06/2021) Left Diabetic Retinopathy Not Present Present/Not Present [facility] Right Diabetic Retinopathy Not Present Present/Not Present [facility] Historical Provider HEALTH MAINTENANCE Final Res ult Performing Organization Address [facility] Co de Phone Number [facility] * MAMMOGRAPHY (12/12/2017) Impressions [facility] - 12/12/2017 IMPRESSION: No direct or indirect evidence of malignancy is seen on the current study. BI-RADS CATEGORY: 2 - BENIGN RECOMMENDED FOLLOW-UP: Bilateral Follow up Mamm in 1 Yr. Narrative SEP OFFICE - 12/12/2017 REASON FOR EXAMINATION: Screening COMPARISON: Prior studies most recent 11/29/2016 DENSITY: There are scattered areas of fibroglandular density. FINDINGS: Computer aided detection assisted in the interpretation of the mammogram. Some scattered microcalcifications both breasts. No suspicious masses or clustered microcalcifications of developed when compared to prior studies. There have been some waxing and waning nodular densities both breasts when compared to the prior studies consistent with small cysts. [facility] Provider HEALTH MAINTENANCE Final Res ult Performing Organization Address City/[facility] Co de Phone Number SEP OFFICE * HEPATITIS C ANTIBODY IGM + IGG (02/04/2016 9:11 AM EDT) Hep C Ab Negative Negative [facility] Blood specimen (specimen) UPPER LIMB STRUCTURE / Unknown 02/04/2016 9:11 AM EDT 02/04/2016 4:26 PM EDT Aravind Gomez MD IMMUNOLOGY ORDERABLES Final Result Performing Organization Address City/[facility]/ZIP Co de Phone Number [facility] [address] [place] [address] * DEXA SCAN (01/01/2016) 01/01/2016 Narrative [facility]ICE - 01/01/2016 BONE DENSITOMETRY ON 10/27/2015HISTORY: PostmenopausalA single low resolution AP image of the lumbar spine was performed andshows the total bone mineral density to measure 1.070 with a T-scorevalue of 0.2 and a Z-score of 1.5 which is 118% of mean based on ageand sex.A single low resolution AP image of the left hip was performed andshows the total bone mineral density to measure 1.125 with a T-scorevalue of 1.5 and a Z-score at 2.3 which is 134% of mean based on ageand sex. T-score value at the femoral neck is 1.3.A single low resolution AP image of the right hip was performed andshows the total bone mineral density to measure 1.138 with a T-scorevalue of 1.6 and a Z-score of 2.4 which is 136% of mean based on ageand sex. T-score value at the femoral neck is 1.5. Impression was negative [facility] Provider HEALTH MAINTENANCE Final Res ult SEP OFFICE from Last 3 Months or Most Recently Relevant to Health Maintenance Insurance MEDICARE ADVANTAGE MR MEDICARE ADVANTAGE MR MEDICARE ADVANTAGE MR MEDICARE ADVANTAGE MR MEDICARE ADVANTAGE MR ANTHEM MEDICARE ADVANTAGE MR Advance Directives For more information, please contact: [phone] * Full Code (Latest Code Status on File) Date Activated Date Inactivated Comments 08/01/2020 3:53 PM 08/06/2020 12:01 AM Care Teams Ophthalmic Technician Apprentice Relationship Specialty Start Date End Date [place]ravind [place] [address] [address] [place] [phone] PCP - General 02/12/10 Carie Berry MD [address] [address] Consulting Physician Internal Medicine-Nephrology 11/29/18 Lawrence Bueno, Clerical Staff Financial Counselor 02/19/25
--- OUTSIDE RECORDS SUMMARY | 2025-05-19 09:31 | XMS_ITS | Encounter Summary ---
Author Organization [facility] [place] [address] Care Team Providers Care Tuckpointer Cleaner Caulker Name Role Phone Aravind Gomez MD Primary Care Provider [phone] Carie Berry MD Unavailable [phone] Lawrence Bueno Clerical Staff Unavailable + [phone] Reason for Visit * Reason Comments Pharmacy Hyperlipidemia Management Encounter Details Date Type Department Care Team (Latest Contact Info) Description 04/03/2025 Specialty Pharmacy [facility] [address] [place] [address] [place] [address] Minnie Ball CPhT Pharmacy Hyperlipidemia Management Social History Tobacco Use Types Packs/Day Years [...] Date Recorded PHQ-2 Total Score 0 06/14/2023 [facility] of Occupat ional Health - Occupational Stress [...] place to sleep or slept in a skilled nursing (including now)? No 06/12/2023 Comments No Sex [...] documented in this encounter Progress Notes * Minnie Ball CPhT - 04/03/2025 3:43 PM EDT [facility] 04/03/2025 3:43 PM Reaching out to patient to schedule 3 month follow up appointment for ~05/29. Patient to be scheduled with: Any available EDG pharmacist Sent [employer] message. Minnie Ball CPhT * Danielle Meyer CPhT - 04/03/2025 3:43 PM EDT [facility] 04/17/2025 4:13 PM Calling patient to schedule 3 month follow up appointment for ~05/29/25. Patient to be scheduled with: Any available EDG pharmacist Patient scheduled for 05/29/25 @ 4pm via [employer] Video Did patient request appointment to be on a later date? No Danielle Meyer CPhT documented in this encounter Plan of Treatment Upcoming Encounters Date Type Department Care Team (Late st Contact Info) Description 05/29/2025 4:00 [place] [address] Lauren Ojeda, [facility] 06/12/2025 1:30 PM EDT Appointment [facility] [address] [facility] [place] [address] 09/25/2025 1:45 PM EST Office Visit [facility] Nephrology [place] [address] [place] [address] Carie Berry MD [address] [place] [phone] 10/07/2025 10:30 AM EST Office Visit [facility] [address] [facility] [address] [place] [address] Ronen Cage MD [address] [facility] [place], [place] [id number] 04/13/2026 1:10 PM EDT Office Visit [facility] [place] [address] [facility] [address] [place] [address] Carmen Kinney MD [address] [facility] [address] [place] [address] documented as of this encounter [...] documented as of this encounter Care Teams Tuckpointer Cleaner Caulker Relationship Specialty Start Date End Date Aravind Gomez MD [address] [place] [address] [place] [address] PCP - General 02/12/10 Carie Berry MD [address] [facility] [address] [address] Consulting Physician Internal Medicine-Nephrology 11/29/18 Lawrence Bueno, Clerical Staff Financial Counselor 02/19/25 documented as of this encounter
--- OUTSIDE RECORDS SUMMARY | 2025-05-19 09:31 | XMS_ITS | Encounter Summary ---
Author Organization [place] [place] [address] Care Team Providers Care Hand Tier Name Role Phone Aravind Gomez MD Primary Care Provider [phone] Carie Berry MD Unavailable [phone] Lawrence Bueno Clerical Staff Unavailable [phone] Reason for Visit * Reason Onset Date Comments Medication Refill Central Patient Navigator Outreach 03/29/2025 Med refill 30 Pulm Encounter Details Date Type Department Care Team (Late st Contact Info) Description 03/29/2025 Telephone SEP Pulmonology [facility] [address] [facility] [address] [place] [address] Ronen Cage MD [address] [place] [address] Medication Refill; Central Patient Navigator Outreach (Med refill 30 Pulm) Social History Tobacco Use Types Packs/Day Years [...] Date Recorded PHQ-2 Total Score 0 06/14/2023 [facility] - [facility]ational [...] End Date montelukast (SINGULAIR) 10 mg Oral TabletIndications: Moderate persistent asthma without complication Take 1 Tablet by mouth once daily every evening. 30 Tablet 03/31/2025 04/09/2025 documented in this encounter Miscellaneous Notes * Telephone Encounter - Daniela Bar MA - 03/31/2025 1:27 PM EDT Patient Outreach: Medication refill appointment, nicole count: Med Refill 30 Pulm Attempt Count: 1st Care Gaps Addressed demolition expert: Appointment Outcome: Please review, no available times slots for appt. Please contact pt to schedule an appt. Call back number: [phone] * Telephone Encounter - Amina Mchugh CPhT - 03/31/2025 1:11 PM EDT Montelukast 10mg - Future Visit: na Last Assessed Visit: 05-28-24 Follow-Up: 11-25-24 Appointment protocol failed. One nicole supply sent to pharmacy. Routed to Patient Navigators. documented in this encounter Plan of Treatment Upcoming Encounters Date Type Department Care Team (Late st Contact Info) Description 05/29/2025 4:00 PM EDT Appointment [facility] [address] [facility] [address] [place] [address] Lauren Ojeda, [facility] 06/12/2025 1:30 PM EDT Appointment [facility] [address] [facility] [place] [address] 09/25/2025 1:45 PM EST Office Visit [facility] Nephrology [place] [address] [facility] [address] [place] [address] Carie Berry MD [address] [facility] [address] [place] [phone] 10/07/2025 10:30 AM EST Office Visit SEP Pulmonology [facility] [address] [facility] [address] [place] [phone] Ronen Cage MD [address] [facility] [place] [address] 04/13/2026 1:10 PM EDT Office Visit [facility] [place] [address] [facility] [address] [place] [address] Carmen Kinney MD [address] [facility] [address] [place] [address] documented as of this encounter [...] Oral TabletIndications:Moderat e persistent asthma without complication TAKE 1 TABLET BY MOUTH EVERY EVENING. 09/23/2024 03/31/2025 documented as of this encounter Additional Health Concerns Assessment Noted Time A fall risk assessment has been complete d for the patient 10/19/2022 2:50 PM EST documented as of this encounter Care Teams Hand Tier Relationship Specialty Start Date End Date Aravind Gomez MD [address] [facility] [place] [id number] PCP - General 02/12/10 Carie Berry MD [address] [place] [address] Consulting Physician Internal Medicine-Nephrology 11/29/18 Lawrence Bueno, Clerical Staff Financial Counselor 02/19/25 documented as of this encounter
--- OUTSIDE RECORDS SUMMARY | 2025-05-19 09:31 | XMS_ITS | Clinical Summary ---
Author Organization [facility] Address [address] [place] [id number] Care Team Providers Care Crime Scene Specialist Name Role Phone Aravind Shields DO Primary Care Provider [phone] Martine Perez MD Unavailable [phone] Allergies Active Allergy Reactions Criticality Noted Date Comments Adhesive Tape-Silicones Other (See Comments) High 05/03/2017 Irritated, chapped, raised blisters if on too long OK to use paper tape Amoxicillin Diarrhea,Other (See Comments) Low 11/21/2012 Stomach cramps Fluoxetine Nausea Only 01/13/2021 Atorvastatin 11/04/2017 Lisinopril Swelling High 05/03/2017 Facial swelling Morphine 11/04/2017 Nitrofurantoin Monohyd/M-Cryst Other (See Comments) High 02/23/2015 angioedema Other Swelling High 06/07/2021 Pseudoephedrine 11/04/2017 Bewrpow-Ddb-Btz Reductase Inhibitors 11/04/2017 Venlafaxine Other (See Comments) 01/13/2021 Shaky and dizziness Medications albuterol sulfate (ProAir HFA) 90 mcg/actuation HFA Aerosol Inhaler INHALE 2 PUFFS INTO THE LUNGS EVERY 6 HOURS NEEDED. Active cetirizine (ZYRTEC) 10 mg Tablet Take by mouth daily. 1 Active ezetimibe (ZETIA) 10 mg Tablet Take by mouth daily. 1 Active famotidine (PEPCID) 40 mg tablet Take by mouth nightly at bedtime. 1 Active fluticasone propionate (FLONASE) 50 mcg/actuation nasal spray [place] 2 Sprays into nose. 1 Active Breo Ellipta 100-25 mcg/dose Disk with Device INHALE 1 PUFF INTO THE LUNGS ONCE DAILY 1 Active furosemide (LASIX) 20 mg tablet Take by mouth daily. 1 Active hydrALAZINE (APRESOLINE) 25 mg tablet Take by mouth 3 times daily. 1 Active montelukast (SINGULAIR) 10 mg Tablet Take by mouth every evening. 1 Active Ozempic 1 mg/dose (2 mg/1.5 mL) Pen Injector INJECT 1 MG UNDER THE SKIN ONCE A WEEK 1 Active Januvia 50 mg Tablet Take by mouth daily. 1 Active aspirin 81 mg Tablet, Delayed Release (E.C.) Take 81 mg by mouth daily. Active fexofenadine (CHUCK) 180 mg tablet Take by mouth daily. 1 Active folic acid (FOLVITE) 1 mg tablet Take by mouth daily. 1 Active omeprazole (PRILOSEC) 40 mg Capsule, Delayed Release(E.C.) TAKE ONE CAPSULE BY MOUTH ONCE DAILY 30 MINUTES BEFORE BREAKFAST 1 Active meloxicam (MOBIC) 7.5 mg tablet Take 7.5 mg by mouth daily as needed. 2 Active glipiZIDE (GLUCOTROL) 5 mg tablet TAKE 1/2 TABLET BY MOUTH 2 TIMES DAILY. 2 Active cyanocobalamin 100 mcg Tablet Take by mouth daily. Active nystatin (MYCOSTATIN) 100,000 unit/gram cream Apply topically 2 times daily. 2 Active estradioL (Estrace) 0.01 % (0.1 mg/gram) Cream Insert 1 g into vagina 3 days a week. 42.5 g 11 2 Active Additional Information Patient not taking.Reported on 08/22/2023 oxybutynin (DITROPAN-XL) 5 mg CR tablet Take 1 Tablet (5 mg) by mouth every evening. 90 Tablet 3 2 Active Additional Information Patient not taking.Reported on 08/22/2023 cyanocobalamin (Vitamin B-12) 1,000 mcg tablet Take 1,000 mcg by mouth daily. Active METOPROLOL SUCCINATE PO Take by mouth. Ac tive Active Problems Problem Noted Date Diagnosed Date Dyslipidemia 11/13/2023 11/13/2023 Overview (11/13/2023): No longeron zetia and lopid has statin intolerance Now on Rapatha. Hyperlipidemia associated with type 2 diabetes rian bennett 11/29/2022 11/13/2023 Overview (11/13/2023): On Rapatha. Stage 3a chronic kidney disease 01/05/2022 11/13/2023 Overview (11/13/2023): Unable to tolerate SGLT2I due to yeast infections. Not on ARB due to acute exacerbation of renal failure. Consider restarting. Preventing CKD Progression: 1.Tight control of BP, BS, Lipids, passive smoking etc 2.Avoid any NSAIDs 3.Avoid IV contrast (Oral contrast OK). 4.Careful selection of Abx, dose for current GFR. 5.DASH diet, along with limiting the protein intake. Recommended protein intake no more than 1 gm/kg/day. Na =2 gm per day. Limit Phosphorus and Purines in diet too. Well controlled type 2 diabetes mellitus 020 11/13/2023 Overview (11/13/2023): Lab Results Component Value Date HGBA1C 8.0 (H) 01/20/2023 HGBA1C 9.4 (H) 10/11/2022 HGBA1C 7.2 (H) 01/05/2022 FSBS less than 150 . No open wounds. No low's, Metformin causes diarrhea and GI upset.. Jardiance caused chronic yeast. Tolerating Ozempic. Continue to titrate. Now off Januvia. Will stop glipizide. Unable to tolerate SGLT2I due to yeast infections. Iris and micro utd. Statin intolerance 02/04/2016 11/13/2023 Overview (11/13/2023): Last Assessment & Plan: Consider repatha or livalo pending lab results. Gastroesophageal reflux disease without esophagi tis 08/20/2015 11/13/2023 Overview (11/13/2023): Sees Dr. Olivo. Normal EGD in 2012. On omeprazole and famotidine. Fairly well controled has some dysphagia. Denies dark stools, BPR, and hemopytsis. Essential hypertension 02/18/2015 Overview (11/13/2023): HTN: Taking meds. Well controlled. Denies chest pain and SOB, swelling, dizziness or orthostatics. On lasix, bblocker, and hydralazine. BP Readings from Last 3 Encounters: 06/14/23 130/90 05/25/23 141/83 04/05/23 122/84 Family History Medical History Relation Name Comments Diabetes Father High Blood Pressure Father High Cholesterol Father Stroke Father Stroke Maternal Grandfather Stroke Maternal Grandmother Colon Cancer Other UNCLE Diabetes Sister High Blood Pressure Sister Lung Disease Sister Relation Name Status Comments Father Maternal Grandfather Maternal Grandmother Other UNCLE Alive Sister Social History Tobacco Use Types Packs/Day Years Used Date Smoking Tobacco: Never Smokeless Tobacco: Never Alcohol Use Standard Drinks/Week Comments No 0 (1 standard drink = 0.6 oz pur e alcohol) Comments No Sex and Gender Information Value Date Recorded Sex Assigned at Not on file Legal Sex Female 4:54 PM EST Gender Identity Not on file Sexual Orientation Not on file Last Filed Vital Signs Vital Sign Reading Time Taken Comments Blood Pressure 122/82 08/22/2023 10:27 AM EST Pulse - - Temperature - - Respiratory Rate - - Oxygen Saturation - - Inhaled Oxygen Concentration - - Weight 98.9 kg (218 lb) 11/13/2023 9:56 AM EST Height 162.6 cm (5' 4 ) 11/13/2023 9:56 AM EST Body Mass Index 37.42 11/13/2023 9:56 AM EST Plan of Treatment Health Maintenance Due Date Last Done Comments Cologuard 1957 Diabetes A1c Monitoring 1957 Diabetes Mellitus Eye Exam (Yearly) 1957 Diabetes Mellitus Foot Care (Yearly) 1957 FIT 1957 Lipid Monitoring 1974 Hepatitis C Virus (HCV) Screening 1978 Pneumococcal Vaccine: 50+ Ye ars (1 of 1 - PCV) 2007 Zoster-RZV(Shingrix) (1 of 2) 2007 Fall Risk Assessment 2022 Osteoporosis Screening 2022 10/27/2015 Advance Care Planning 09/11/2024 Depression Screening 09/11/2024 Diabetes Mellitus Microalbum in (Yearly) 09/11/2024 Renal Monitoring 09/11/2024 05/04/2022 COVID-19 Vaccine (4 - 2024-2 6 season) 2025 01/05/2022, 11/04/2020, 10/06/2020 Influenza Vaccination (#1) 05/12/202506/14, 06/24/2022, 06/04/2020, Additional history exists Breast Cancer Screening 08/22/2025 08/22/20 23, 06/15/2022, 06/07/2021, Additional history exists Tetanus Vaccination (Every 1 0 Years) 10/27/2026 10/27/2016, 09/11/2001 RSV Vaccines (1 - 1-dose 75+ series) 2032 Colonoscopy 08/14/2033 08/14/2023 Colorectal Cancer Screening 08/14/2033 Influenza Vaccination (Yearly) Discontinued 1 , 06/24/2022, 06/04/2020, Additional history exists Procedures Procedure Name Priority Date/Time Associated Diagnosis Comments MAMM-SCREENING W/LÓPEZ Routine 08/22/2023 12:29 PM EST Visit for screening mammogram DXA-DEXA SCAN AXIAL SKELETON Routine 10/27/2015 10:57 AM EST Asymptomatic menopausal state from Last 3 Months or Most Recently Relevant to Health Maintenance Results * MAMM-SCREENING W/LÓPEZ (08/22/2023 12:29 PM EST) Anatomical Region Laterality Modality Bilateral Mammography 08/23/2023 8:10 AM EST Impressions 08/23/2023 8:11 AM EST IMPRESSION: No direct or indirect evidence of malignancy. BI-RADS CATEGORY: 2 - BENIGN RECOMMENDED FOLLOW-UP: RECOMMENDATION: Follow up mammogram in 1 year LATERALITY: Bilateral Reminder: The patient was entered into a reminder system for annual screening mammography notification. If additional imaging and/or biopsy is indicated, [facility] staff will inform the patient of the findings and recommendations, obtain necessary orders from the referring provider, and schedule the patient for appointment as appropriate. Consider discussion with your primary care provider regarding breast MRI with IV contrast for supplemental breast cancer screening for women with dense breasts. This study was performed and interpreted using full-field digital mammographic and computer-aided detection. The [employer] recommends annual screening mammography for women age 40 and above. Please note that mammography is not 100% accurate in diagnosing breast cancer. A routine breast examination is recommended to correlate with mammographic findings. Any palpable abnormality must be assessed clinically. If the patient has a new or unexplained palpable abnormality, then a diagnostic mammogram and/or breast ultrasound may be indicated. Signed By: Andrew Dickinson MD Narrative 08/23/2023 8:11 AM EST STUDY DATE: August 22, 2023 EXAM: MAMM-SCREENING W/LÓPEZ REASON FOR EXAMINATION: Screening COMPARISON: 2021 and prior TOMOSYNTHESIS: Yes DENSITY: The breast parenchyma has scattered fibroglandular densities. LIMITATIONS OF EXAM: No significant limitations. FINDINGS: No focal mass, architectural distortion or groupings of suspicious calcifications are seen. Procedure Note Andrew Dickinson MD - 08/23/2023 STUDY DATE: August 22, 2023 EXAM: MAMM-SCREENING W/LÓPEZ REASON FOR EXAMINATION: Screening COMPARISON: 2021 and prior TOMOSYNTHESIS: Yes DENSITY: The breast parenchyma has scattered fibroglandular densities. LIMITATIONS OF EXAM: No significant limitations. FINDINGS: No focal mass, architectural distortion or groupings of suspiciouscalcifications are seen. IMPRESSION: No direct or indirect evidence of malignancy. BI-RADS CATEGORY: 2 - BENIGN RECOMMENDED FOLLOW-UP: RECOMMENDATION: Follow up mammogram in 1 year LATERALITY: Bilateral Reminder: The patient was entered into a reminder system for annualscreening mammography notification. If additional imaging and/or biopsy is indicated, [facility] staff will inform the patient of the findings and recommendations,obtain necessary orders from the referring provider, and schedule thepatient for appointment as appropriate. Consider discussion with your primary care provider regarding breast MRIwith IV contrast for supplemental breast cancer screening for women withdense breasts. This study was performed and interpreted using full-field digitalmammographic and computer-aided detection. The [employer] recommends annual screening mammographyfor women age 40 and above. Please note that mammography is not 100% accurate in diagnosing breastcancer. A routine breast examination is recommended to correlate withmammographic findings. Any palpable abnormality must be assessed clinically. If the patient hasa new or unexplained palpable abnormality, then a diagnostic mammogramand/or breast ultrasound may be indicated. Signed By: Andrew Dickinson MD us Martine Perez MD IMG MAMMO ORDERABLES Final Result * SAUL-DEXA SCAN AXIAL SKELETON (10/27/2015 10:57 AM EST) Anatomical Region Laterality Modality Mammography 10/27/2015 11:0 1 AM EST Impressions 10/27/2015 11:03 AM EST IMPRESSION: Normal bone mineral density of the lumbar spine. Normal bone mineral density of the left hip. Normal bone mineral density of the right hip. SCAN IMAGES WITH T VALUES WILL BE FAXED UNDER SEPARATE COVER. The T-value compares the patient's bone mineral density with the peak bone mass of young normal patient's (average BMD of young age, sex and race matched controls). According to the WHO (World Health Organization) criteria, patients with T-values between -1 and -2.5 have a low bone mass or density (osteopenia). Patients with T-values less than -2.5 have osteoporosis. The Z-value compares the patient's bone mineral density with age and sex-matched peers (average BMD of same age, sex and race matched controls). A T score below -2.5, especially in the presence of risk factors in post menopausal women, indicates the need for treatment to prevent fractures. A T score below -1 within five years after menopause or a Z score below -1 at any age indicates the need to prevent further bone loss. A Z score below -2 indicates accelerated bone loss and suggests further studies to identify possible major risk factors (2). The risk of vertebral or hip fracture approximately doubles (1.5-2.5) for each decrease of 1 standard deviation in T-score (2). Low bone density is not the only risk factor for fracture. Other risk factors are patient age, risk of falling, previous osteoporotic fracture and family history of osteoporosis. Serial examinations of bone mineral density are most cost effective when performed every 12-24 months because of the relatively slow rate of bone resorption and remodeling. The change in a patient's bone mineral density between the two exams should be at least 5% to be meaningful (4.2-5.5% for the lumbar spine, 5.5-8.5% for the hip) (3). References: (1) International Society for Clinical Densitometry 2007. (2) Jordyn Ascencio NEJM 1998; 338:736-746. (3) Gloria Zapata [place] Tissue Int 1996; 58: 207-214. Signed By: Zee Briscoe 10/27/2015 11:03 AM EST BONE DENSITOMETRY ON 10/27/2015 HISTORY: Postmenopausal A single low resolution AP image of the lumbar spine was performed and shows the total bone mineral density to measure 1.070 with a T-score value of 0.2 and a Z-score of 1.5 which is 118% of mean based on age and sex. A single low resolution AP image of the left hip was performed and shows the total bone mineral density to measure 1.125 with a T-score value of 1.5 and a Z-score at 2.3 which is 134% of mean based on age and sex. T-score value at the femoral neck is 1.3. A single low resolution AP image of the right hip was performed and shows the total bone mineral density to measure 1.138 with a T-score value of 1.6 and a Z-score of 2.4 which is 136% of mean based on age and sex. T-score value at the femoral neck is 1.5. Procedure Note Zee Briscoe MD - 10/27/2015 BONE DENSITOMETRY ON 10/27/2015 HISTORY: Postmenopausal A single low resolution AP image of the lumbar spine was performed and shows the total bone mineral density to measure 1.070 with a T-score value of 0.2 and a Z-score of 1.5 which is 118% of mean based on age and sex. A single low resolution AP image of the left hip was performed and shows the total bone mineral density to measure 1.125 with a T-score value of 1.5 and a Z-score at 2.3 which is 134% of mean based on age and sex. T-score value at the femoral neck is 1.3. A single low resolution AP image of the right hip was performed and shows the total bone mineral density to measure 1.138 with a T-score value of 1.6 and a Z-score of 2.4 which is 136% of mean based on age and sex. T-score value at the femoral neck is 1.5. IMPRESSION: Normal bone mineral density of the lumbar spine. Normal bone mineral density of the left hip. Normal bone mineral density of the right hip. SCAN IMAGES WITH T VALUES WILL BE FAXED UNDER SEPARATE COVER. The T-value compares the patient's bone mineral density with the peak bone mass of young normal patient's (average BMD of young age, sex and race matched controls). According to the WHO (World Health Organization) criteria, patients with T-values between -1 and -2.5 have a low bone mass or density (osteopenia). Patients with T-values less than -2.5 have osteoporosis. The Z-value compares the patient's bone mineral density with age and sex-matched peers (average BMD of same age, sex and race matched controls). A T score below -2.5, especially in the presence of risk factors in post menopausal women, indicates the need for treatment to prevent fractures. A T score below -1 within five years after menopause or a Z score below -1 at any age indicates the need to prevent further bone loss. A Z score below -2 indicates accelerated bone loss and suggests further studies to identify possible major risk factors (2). The risk of vertebral or hip fracture approximately doubles (1.5-2.5) for each decrease of 1 standard deviation in T-score (2). Low bone density is not the only risk factor for fracture. Other risk factors are patient age, risk of falling, previous osteoporotic fracture and family history of osteoporosis. Serial examinations of bone mineral density are most cost effective when performed every 12-24 months because of the relatively slow rate of bone resorption and remodeling. The change in a patient's bone mineral density between the two exams should be at least 5% to be meaningful (4.2-5.5% for the lumbar spine, 5.5-8.5% for the hip) (3). References: (1) International Society for Clinical Densitometry 2007. (2) Jordyn AscencioJM 1998; 338:736-746. (3) Gloria Zapata [place] Tissue Int 1996; 58: 207-214. Signed By: Zee Briscoe Pradeep Mcclellan MD IMG DEXA ORDERABLES Final Result from Last 3 Months or Most Recently Relevant to Health Maintenance Insurance D[employer] Care Teams Crime Scene Specialist Relationship Specialty [place] [address] [place] [address] PCP - General 06/14/10 Martine Perez MD [address] [place] [address] [address] [place], [place] [address] Obstetrics & Gynecology 05/25/21
--- OUTSIDE RECORDS SUMMARY | 2025-05-19 09:31 | XMS_ITS | Encounter Summary ---
Author [place] [address] Care Team Providers Care Egg Processor Name Role Phone Aravind Gomez MD Primary Care Provider [phone] Carie Berry MD Unavailable [phone] Lawrence Bueno Clerical Staff Unavailable + [phone] Encounter Details Date Type Department Care Team (Late st Contact Info) Description 04/03/2025 Abstract SEP Corrina [facility] [place] [address] Aravind Gomez MD [place] [address] Social History Tobacco Use Types Packs/Day Years [...] Date Recorded PHQ-2 Total Score 0 06/14/2023 [facility] - Occupational Stress Questionnaire Answer Date Recorded [...] place to sleep or slept in a halfway (including now)? No 06/12/2023 Comments No Sex [...] Chung CCMA * Does this person have serious difficulty walking or climbing stairs? Answer Date of Assessment Author No 11/02/2020 3:30 PM KIN Sheldon Yulisa RIN Alfred * Does this person have difficulty dressing or bathing? Answer Date of Assessment Author No 11/02/2020 3:30 PM KIN Yulisa Chung CCMA * Because of a physical, mental or emotional condition, does this person have difficulty doing errands alone such as visiting a doctor's office or shopping? Answer Date of Assessment Author No 11/02/2020 3:30 PM KIN Yulisa Chung CCMA documented as of this encounter Mental Status * Because of a physical, mental or emotional condition, does this person have serious difficulty concentrating, remembering or making decisions? Answer Entry Date Author No 11/02/2020 3:30 PM KIN Yulisa Chung CCMA documented in this encounter Plan of Treatment Upcoming Encounters Date Type Department Care Team (Late st Contact Info) Description 05/29/2025 4:00 PM EDT Appointment [facility] [address] [place] [address] [address] [place] [address] Lauren Ojeda, [facility] 06/12/2025 1:30 PM EDT Appointment [facility] [address] [place] [address] 09/25/2025 1:45 PM EST Office Visit [facility] [place] [address] [place] [address] Carie Berry MD [address] [place] [phone] 10/07/2025 10:30 AM EST Office Visit [facility] [address] [facility] [address] [place] [phone] Ronen Cage MD [address] [facility] [place] [address] 04/13/2026 1:10 PM EDT Office Visit [facility] [place] [address] [facility] [address] [place] [address] Carmen Kinney MD [address] [facility] [address] [place] [address] documented as of this encounter Goals [...] documented as of this encounter Care Teams Egg Processor Relationship Specialty Start Date End Date Aravind Gomez MD [address] [employer] [place] [address] PCP - General 02/12/10 Carie Berry MD [address] [place] [address] Consulting Physician Internal Medicine-Nephrology 11/29/18 Lawrence Bueno, Clerical Staff Financial Counselor 02/19/25 documented as of this encounter
== END 2025-05-15 23:59 ==
LOC: LAB.DROPOF 05-19 09:25
PROVIDERS: PCP Nurse Practitioner; Visit Provider Nurse Practitioner
DX: B35.1 Tinea unguium (principal)
CPT/HCPCS: 87101; 87220